=== PATIENT | female | born 1970 | race Caucasian/White ===

== ENCOUNTER 2023-03-16 23:25 | Emergency (ER) | payer OTHER ==
[~2023-03-16] VITALS: Ht 167.6 cm; Wt 53.5 kg
[2023-03-16 23:28] VITALS: BP 107/74; PULSE 98; RESP 17; TEMP 97.8; O2SAT 97
[2023-03-17] MEDS ORDERED: NAPR-54 PO (03:36)
== END 2023-03-17 03:40 | disposition home or self-care (01) ==
LOC: MED 23:25
DX: S70.02XA Contusion of left hip, initial encounter (principal); F10.129 Alcohol abuse with intoxication, unspecified; F17.210 Nicotine dependence, cigarettes, uncomplicated; Z90.710 Acquired absence of both cervix and uterus; Z79.1 Long term (current) use of non-steroidal anti-inflammatories (NSAID); W18.39XA Other fall on same level, initial encounter; Y92.89 Other specified places as the place of occurrence of the external cause; Y93.89 Activity, other specified; Y99.8 Other external cause status
CPT/HCPCS: 72192; 73501; 99284